=== PATIENT | male | born 1980 ===

== ENCOUNTER → 2018-09-10 | Outpatient (CLI) | payer OTHER ==
[~2018-09-10] MED LIST: BARIUM SULFATE 135 ML (E-Z HD) PO ONE
== END | disposition home or self-care (01) ==
LOC: RAD 09:56
PROVIDERS: ATTEND Otolaryngology
DX: K21.9 Gastro-esophageal reflux disease without esophagitis (principal)
CPT/HCPCS: 74230; Z7610